=== PATIENT | male | born 1985 | race Hispanic/Latino ===

== ENCOUNTER 2024-09-19 22:18 | Emergency (ER) | payer OTHER ==
[~2024-09-19] VITALS: Ht 180.3 cm; Wt 122.5 kg
[2024-09-19 22:19] VITALS: TEMP 98.4
[2024-09-19] MEDS ORDERED: SODIUM CHLORIDE 0.9% 1000ML 1,000 ML ONE (22:42)
[2024-09-19] MEDS ORDERED: SODIUM CHLORIDE FLUSH 10 ML SYR IV PRN (22:45)
[2024-09-19 22:47] VITALS: BP 172/98; PULSE 98
[2024-09-19 22:50] LABS: BASOPHILS % 0.8 % (0.0-1.0); EOSINOPHILS % 7.3 % (0.0-6.0); LYMPHOCYTES % 32.0 % (18.0-39.1); MONOCYTES % 12.7 % (4.4-11.3); NEUTROPHILS % 46.8 % (38.7-80.0); RED CELL DISTRIBUTION WIDTH 12.6 % (11.7-14.4)
[2024-09-19] MEDS: SODIUM CHLORIDE 0.9% 1000ML 1,000 ML IV STA (22:53)
[2024-09-19 23:13] LABS: EST GLOMERULAR FILTRATION RATE 75.0 ML/MIN (>=60)
[2024-09-20] MEDS: SODIUM CHLORIDE 0.9% 1000ML 1,000 ML IV ONE (00:01)
[2024-09-20 00:26] VITALS: PULSE 83; RESP 14; O2SAT 95
== END 2024-09-20 01:39 | disposition home or self-care (01) ==
LOC: ER 23:03
DX: R42 Dizziness and giddiness (principal); E86.0 Dehydration; I10 Essential (primary) hypertension; R73.03 Prediabetes; E66.9 Obesity, unspecified
CPT/HCPCS: 36415; 71045; 80053; 82550; 84484; 85025; 93005; 94760; 99284; J7030